=== PATIENT | male | born 1950 | race Caucasian/White ===

== ENCOUNTER 2021-05-09 09:26 | Outpatient (CLI) | payer MEDICARE, SELFPAY ==
--- NOTE | ~2021-05-09 | XR_ITS ---
EXAMINATION: XR chest 2V DATE: 05/09/2021 10:13 INDICATION: Prostate cancer. TECHNIQUE: Frontal and lateral views of the chest were obtained. COMPARISON: CT abdomen and pelvis 05/09/2021 FINDINGS: The chest demonstrates clear lungs without pneumonia, pleural effusion, or pneumothorax. Th e heart size is normal. IMPRESSION: 1. No acute cardiopulmonary disease. Reviewed, dictated and finalized at location A.
--- NOTE | ~2021-05-09 | CT_ITS ---
EXAMINATION: CT abdomen pelvis w con DATE: 05/09/2021 10:06 INDICATION: Prostate cancer. TECHNIQUE: Computed tomography (CT) of the abdomen and pelvis was performed with 100 mL Omnipaque 350 intravenous contrast. Automated exposure control and iterative reconstruction technique were employe d. The dose-length product was 1055.30 mGy-cm. COMPARISON: None. FINDINGS: The visualized portions of the lung bases demonstrate mild atelectasis. No pleural effusion . The heart size is normal. There are coronary artery calcifications. There are calcifications of aor tic valve. No pericardial effusion. The liver, gallbladder, spleen, pancreas, adrenal glands, and rig ht kidney are normal. There are cysts in left kidney measuring up to 4.2 cm. The prostate is moderate ly enlarged. There are bilateral inguinal hernias containing fat. There are no dilated loops of bowel . The appendix is normal. There are no pathologically enlarged lymph nodes. There is no free intraper itoneal fluid. There are benign bone islands in the pelvis and left femoral head. There is severe lum bar spondylosis and moderate thoracic spondylosis. There is mild chronic anterior wedging of multiple vertebral bodies. IMPRESSION: 1. Moderately enlarged prostate. No specific evidence of metastatic disease. Reviewed, dictated and finalized at location A.
--- NOTE | ~2021-05-09 | NM_ITS ---
EXAMINATION: NM bone scan whole body DATE: 05/09/2021 13:50 INDICATION: Prostate cancer. TECHNIQUE: 24.0 mCi Tc-99m HDP was administered intravenously. Delayed whole-body scintigrams were o btained. COMPARISON: CT abdomen and pelvis 05/09/2021 FINDINGS: There is increased activity in the shoulders, sternoclavicular joints, left elbow, right [place], left knee, and feet without radiographic comparison, likely osteoarthritis. There is increased ac tivity in the lumbar spine correlating with severe degenerative disc disease by CT. There is increase d activity in the greater trochanter of proximal right femur without CT correlate, likely enthesopath y. IMPRESSION: 1. No evidence of metastatic disease. Reviewed, dictated and finalized at location A.
[2021-05-09 10:00] LABS: Estimated Glomerular Filt Rate > 60
== END 2021-05-09 09:27 | disposition home or self-care (01) ==
PROVIDERS: PCP Internal Medicine; Visit Provider Urology
DX: C61 Malignant neoplasm of prostate (principal)
CPT/HCPCS: 71046; 74177; 78306; A9561; Q9967

== ENCOUNTER 2021-12-14 17:58 | Emergency (ER) | payer MEDICARE, SELFPAY ==
--- NOTE | ~2021-12-14 | US_ITS ---
EXAMINATION: US scrotum doppler DATE: 12/14/2021 18:29 INDICATION: Testicular swelling TECHNIQUE: Testicular sonogram utilizing grayscale and Doppler COMPARISON: None. FINDINGS: The right testis measures 3.6 x 1.5 x 2.5 cm. The left testis measures 3.9 x 1.5 x 2.7 cm. There is normal vascular flow to both testes. The right epididymis is normal with normal vascular nora w. The left epididymis is normal with normal vascular flow. There is no varicocele or hydrocele. IMPRESSION: 1. No sonographic correlate for the patient's symptoms. Reviewed, dictated and finalized at location F.
[2021-12-14 17:59] VITALS: BP 129/87; PULSE 110; RESP 16; TEMP 37; O2SAT 96
[2021-12-14 20:38] LABS: Appearance Urine Clear (Clear); Bilirubin Urine 1+ (Negative); Blood Urine Negative (Negative); Color Urine Yellow (Yellow); Glucose Urine UA Negative (Negative); Ketones Urine Trace mg/dL (Negative); Leukocyte Esterase Ur Negative LEU/UL (Negative); Nitrate Urine Negative (Negative); Protein Urine Negative (Negative); Specific Grav Ur 1.025 (1.001-1.035); pH Urine 5.5 (5.0-9.0)
[2021-12-14 20:49] LABS: Mucus Urine Rare /lpf; RBC Urine 0-2 /hpf (0-2); WBC Urine 0-3 /hpf
[2021-12-14 20:53] LABS: Add Urine Microscopic? YES
--- NOTE | 2021-12-14 21:05 | ED.MALEGU ---
HPI - Male Genitourinary General Chief complaint: Urogenital-Male Stated complaint: SCROTAL SWELLING Time Seen by Provider: 12/14/21 20:35 Source: patient History of Present Illness HPI Narrative: Patient presents with scrotal swelling. Patient ports she was using the restroom today looked down noted there was swelling in the scrotum he was concerned so to his and it was recommended that he come to the ER for further evaluation. Patient denies any pain or irritation to the area he denies any dysuria hematuria denies any trauma to the area denies any redness or warmth to the area. Related Data Allergies Allergy/AdvReac Type Severity Reaction Status Date / Time NKDA Allergy Mild Unknown Uncoded 12/14/21 21:19 Review of Systems Review of Systems: CONSTITUTIONAL: Denies fever, chills, or sweats. EYES: Denies visual changes, redness, or discharge. ENT: Denies rhinorrhea, congestion, sore throat, or otalgia. CARDIOVASCULAR: Denies chest pain, palpitations, or edema. RESPIRATORY: Denies cough or dyspnea. GASTROINTESTINAL: Denies abdominal pain, nausea, vomiting, or diarrhea. GENITOURINARY: Denies dysuria or hematuria. SKIN: Denies rash or itching. MUSCULOSKELETAL: Denies back pain, joint pain, or myalgia. NEUROLOGIC: Denies headache, numbness, dizziness, or weakness. PSYCHIATRIC: Denies anxiety or depression. All systems reviewed & are unremarkable except as noted in HPI and below Exam Narrative: GENERAL: Well-appearing, well-nourished, and in no acute distress. HEAD: Normocephalic, atraumatic. EYES: PERRLA, EOMI. ENT: Nares clear, no rhinorrhea or epistaxis. Mucous membranes moist. NECK: Supple. No masses. No JVD ABDOMEN: Soft, nontender, nondistended. : Normal lie of the testicles no tenderness along the testicles abdominis or spermatic cord bilateral there is bilateral inguinal hernias nontender no erythema EXTREMITIES: Normal range of motion. No edema. SKIN: Warm, dry, no rash. NEURO: No focal deficits. Alert and oriented x3. PSYCH: Normal mood and affect. Course Vital Signs Vital signs: Vital Signs Temperature 37.0 C 12/14/21 17:59 Pulse Rate 110 H 12/14/21 17:59 Respiratory Rate 16 12/14/21 17:59 Blood Pressure 129/87 12/14/21 17:59 Pulse Oximetry 96 12/14/21 17:59 Oxygen Delivery Room Air 12/14/21 17:59 Temperature 37.0 C 12/14/21 17:59 Pulse Rate 110 H 12/14/21 17:59 Respiratory Rate 16 12/14/21 17:59 Blood Pressure 129/87 12/14/21 17:59 Pulse Oximetry 96 12/14/21 17:59 Oxygen Delivery Room Air 12/14/21 17:59 MDM - Male Genitourinary MDM Narrative Medical decision making narrative: H&P as above, vss, pt looks clinically well, exam bilateral inguinal hernias, labs clinic unremarkable, img , additional labs/img considered, symptomatic relief available as needed, on reevaluation pt continues to looks clinically well. Suspect inguinal hernias, dns incarcerated or strangulated hernias. plan to tx/monitor as op w/ pcm f/u findings/plan discussed with pt, pt agree/comfortable with plan, return precautions given Lab Data Labs: Lab Results 12/14/21 Range/Units 20:31 Urine Color Yellow (Yellow) Urine Appearance Clear (Clear) Urine pH 5.5 (5.0-9.0) Ur Specific [place] 1.025 (1.001-1.035) Urine Protein Negative (Negative) mg/dL Urine Glucose (UA) Negative (Negative) mg/dL Urine Ketones Trace (Negative) mg/dL Ur Blood (Man) Negative (Negative) Urine Nitrate Negative (Negative) Urine Bilirubin 1+ H (Negative) Urine Urobilinogen 1.0 (<2.0) mg/dL Leukocyte Esterase Rfl Negative (Negative) BEATA/UL Urine RBC 0-2 (0-2) /hpf Urine WBC 0-3 /hpf Urine Mucus Rare /lpf Imaging Data Radiologist's impression: Impressions Scrotum Ultrasound 12/14/21 18:55 IMPRESSION: 1. No sonographic correlate for the patient's symptoms. Discharge Plan Discharge Clinical Impression: Hernia Danette
== END 2021-12-14 21:36 | disposition home or self-care (01) ==
PROVIDERS: Emergency Provider Emergency Medicine; PCP Internal Medicine
DX: K40.90 Unilateral inguinal hernia, without obstruction or gangrene, not specified as recurrent (principal)
CPT/HCPCS: 76870; 81001; 93976; 99284